=== PATIENT | male | born 1960 | race Caucasian/White ===

== ENCOUNTER 2020-04-09 11:08 | Emergency (ER) | payer OTHER ==
[2020-04-09 11:26] VITALS: BP 129/100
--- NOTE | 2020-04-09 11:30 | EDM.PDOC ---
ED HPI GENERAL MEDICAL PROBLEM - General Chief Complaint: Trauma Stated Complaint: [facility] Time Seen by Provider: 04/09/20 11:08 - History of Present Illness INITIAL COMMENTS - FREE TEXT/NARRATIVE: 60-year-old male presents to the emergency room after possibly being run over by a cow. He was at least hit by the cow and knocked down and may have been hit by the cattle gate as well. This occurred roughly half hour prior to arrival he was brought in by EMS. They were concerned about a deformity in his left forearm. He had a field splint applied he was also given fentanyl which did help with his discomfort. For his age the patient is previously healthy last tetanus shot was July 2015. The patient is not on any routine medications and has no known allergies. The patient has not had any recent surgeries. He did obtain an laceration on his right forehead anterior scalp and has some discomfort in this area. He denies neck pain. He has not had any chest abdomen or pelvic pain and other than his left forearm denies any extremity pain. Left Arm Pain Score (Numeric/FACES): 5 - Related Data Allergies Allergy/AdvReac Type Severity Reaction Status Date / Time No Known Allergies Allergy Verified 07/18/15 17:41 Home Meds: Home Meds . [No Known Home Meds] 07/18/15 [History] Past Medical History - Past Surgical History Other HEENT Surgeries/Procedures: nose surgery Review of Systems - Review of Systems Review Of Systems: See Below Constitutional: Reports: No Symptoms Eyes: Reports: No Symptoms Ears: Reports: No Symptoms Nose: Reports: No Symptoms Mouth/Throat: Reports: No Symptoms Respiratory: Reports: No Symptoms Cardiovascular: Reports: No Symptoms GI/Abdominal: Reports: No Symptoms Genitourinary: Reports: No Symptoms Musculoskeletal: Reports: No Symptoms Neurological: Reports: Headache, Other (I be a little foggy with answering questions this seemed to improve over time) Psychiatric: Reports: No Symptoms ED EXAM, GENERAL - Physical Exam Exam: See Below Exam Limited By: No Limitations General Appearance: Alert, No Apparent Distress, Other (Collar in place field splint applied to left upper extremity) Eye Exam: Bilateral Eye: Normal Inspection, PERRL Ears: Normal External Exam, Normal Canal, Hearing Grossly Normal, Normal TMs Nose: Normal Inspection, Normal Mucosa, No Blood Throat/Mouth: Normal Inspection, Normal Lips, Normal Teeth, Normal Gums, Normal Oropharynx, Normal Voice, No Airway Compromise Head: Other (Some palpatory discomfort especially in the right frontal area he has a laceration roughly 3 cm in this area curvilinear in shape) Neck: Tender Midline (Midline tenderness palpated with the c-collar in place albeit the patient does not complain of neck pain). No: Lymphadenopathy (L), Lymphadenopathy (R) Respiratory/Chest: No Respiratory Distress, Lungs Clear, Normal Breath Sounds Cardiovascular: Regular Rate, Rhythm, No Edema, No Murmur GI/Abdominal: Normal Bowel Sounds, Soft, Non-Tender, No Mass, Pelvis Stable Back Exam: Normal Inspection. No: CVA Tenderness (L), CVA Tenderness (R), Muscle Spasm, Paraspinal Tenderness, Vertebral Tenderness Extremities: Normal Inspection, Normal Range of Motion, Non-Tender, Other (He does have the abnormality in his left forearm this does not appear to be displaced he has an abrasion over the dorsal wrist) Psychiatric: Normal Affect, Normal Mood ED TRAUMA PROCEDURES - Laceration/Wound Repair Right Forehead Appearance: Subcutaneous Distal NVT: Neuro & Vascular Intact Anesthetic Type: Local Local Anesthesia - Lidocaine (Xylocaine): 1% Plain Local Anesthetic Volume: 2cc Skin Prep: Saline Exploration/Debridement/Repair: Wound Explored, In a Bloodless Field, Explored to Base Suture Size: 4-0 # of Sutures: 5 Suture Type: Nylon Tetanus Status Addressed: Yes (Is up-to-date) Complications: No - Splinting Upper Extremity Pre-Procedure NV Status: Normal Post-Procedure NV Status: Normal Splint Material: Fiberglass Splint Design: Volar Applied & Form Fitted By: Provider Provider Post-Splint Application NV Check: NV Status Normal Course - Vital Signs Last Recorded V/S: Last Vital Signs Temp 36.9 C 04/09/20 11:42 Pulse 74 04/09/20 11:42 Resp 16 04/09/20 11:42 BP 129/100 H 04/09/20 11:24 Pulse Ox 97 04/09/20 11:42 - Orders/Labs/Meds Orders: Active Orders 24 hr Category Date Time Status URINALYSIS W/RFLX MICRO/CULT Routine Lab 04/09/20 11:20 Received Durable Medical Equipment for Discharge [DME for Oth 04/09/20 14:31 Ordered Discharge] [COMM] Stat Labs: Laboratory Tests 04/09/20 04/09/20 Range/Units 11:20 11:20 WBC 6.30 (4.23-9.07) K/mm3 RBC 4.42 L (4.63-6.08) M/mm3 Hgb 12.7 L (13.7-17.5) gm/dl Hct 39.8 L (40.1-51.0) % MCV 90.0 (79.0-92.2) fl MCH 28.7 (25.7-32.2) pg MCHC 31.9 L (32.2-35.5) g/dl RDW Std Deviation 44.0 H (35.1-43.9) fL Plt Count 191 (163-337) K/mm3 MPV 11.3 (9.4-12.3) fl Neut % (Auto) 66.6 (34.0-67.9) % Lymph % (Auto) 23.5 (21.8-53.1) % [place] % (Auto) 7.6 (5.3-12.2) % Eos % (Auto) 1.4 (0.8-7.0) Baso % (Auto) 0.6 (0.1-1.2) % Neut # (Auto) 4.19 (1.78-5.38) K/mm3 Lymph # (Auto) 1.48 (1.32-3.57) K/mm3 [place] # (Auto) 0.48 (0.30-0.82) K/mm3 Eos # (Auto) 0.09 (0.04-0.54) K/mm3 Baso # (Auto) 0.04 (0.01-0.08) K/mm3 Sodium 144 (136-145) mEq/L Potassium 3.9 (3.5-5.1) mEq/L Chloride 109 H (98-107) mEq/L Carbon Dioxide 26 (21-32) mEq/L Anion Gap 12.9 (5-15) BUN 26 H (7-18) mg/dL Creatinine 1.5 H (0.7-1.3) mg/dL Est Cr Clr Drug Dosing 48.96 mL/min Estimated GFR (MDRD) 48 (>60) mL/min BUN/Creatinine Ratio 17.3 (14-18) Glucose 106 (74-106) mg/dL Calcium 8.7 (8.5-10.1) mg/dL Total Bilirubin 0.4 (0.2-1.0) mg/dL AST 19 (15-37) U/L ALT 24 (16-63) U/L Alkaline Phosphatase 62 (46-116) U/L Total Protein 6.6 (6.4-8.2) g/dl Albumin 3.6 (3.4-5.0) g/dl Globulin 3.0 gm/dL Albumin/Globulin Ratio 1.2 (1-2) Lipase 80 (73-393) U/L Meds: Medications Discontinued Medications Generic Name Dose Route Start Last Admin Trade Name Diego PRN Reason Stop Dose Admin Fentanyl 50 mcg 04/09/20 13:34 04/09/20 13:40 Sublimaze IVPUSH 04/09/20 13:35 50 mcg ONETIME ONE Administration Lidocaine HCl 10 ml 04/09/20 14:06 Xylocaine 1% INJECT 04/09/20 14:07 ONETIME ONE - Re-Assessments/Exams Free Text/Narrative Re-Assessment/Exam: 04/09/20 13:[address] are unremarkable his exam has not changed he has no other pain other than his left forearm and his head. X-ray of his left forearm shows a slightly angulated slightly displaced fracture of the distal third of the ulna. Case was discussed with who recommends a volar splint and will arrange follow-up with the patient the middle of next week. 04/09/20 14:32 Patient is doing well at this time he has the splint is applied to his left forearm and this helped somewhat we will give him a sling to use as well. Patient is ambulating without too much difficulty his laceration has been repaired on his right frontal area and forehead Departure - Departure Time of Disposition: 14:40 Disposition: Home, Self-Care 01 Clinical Impression: Head injury, Scalp laceration, Left ulnar fracture - Discharge Information Instructions: Sutured Wound Care, [id number], Cast or Splint Care, Adult Referrals: PCP,None [Primary Care Provider] - Dhiraj Cardoza MD [Physician] - Forms: ED Department Discharge Additional Instructions: Return to the emergency room with any questions problems or worsening symptoms. Wear the sling it may help with some your arm discomfort. Tylenol as needed for discomfort. Follow-up with Dr. Cardoza today this next week call tomorrow morning if you do not hear from his office. Sepsis Event Note (ED) - Focused Exam Vital Signs: Vital Signs Temp Pulse Resp BP Pulse Ox 04/09/20 11:42 36.9 C 74 16 97 04/09/20 11:24 36.3 C 71 20 129/100 H 915 H - My Orders Last 24 Hours: My Active Orders 04/09/20 11:20 URINALYSIS W/RFLX MICRO/CULT Routine 04/09/20 14:31 Durable Medical Equipment for Discharge [DME for Discharge] [COMM] Stat - Assessment/Plan Last 24 Hours: My Active Orders 04/09/20 11:20 URINALYSIS W/RFLX MICRO/CULT Routine 04/09/20 14:31 Durable Medical Equipment for Discharge [DME for Discharge] [COMM] Stat
[2020-04-09 11:44] VITALS: PULSE 74
--- NOTE | 2020-04-09 11:52 | CT ---
Head CT Technique: Multiple axial sections through the brain were obtained. Intravenous contrast was not utilized. Comparison: No prior intracranial imaging is available. Findings: Ventricles along with basal cisterns and sulci over the convexities are within normal limits for the patient's age. No abnormal parenchymal densities are seen. No evidence of intracranial hemorrhage. No midline shift or mass-effect is seen. Minimal mucosal thickening noted within the maxillary sinuses which have the appearance of mostly small retention cysts. No acute paranasal sinus disease is seen. Mastoid sinuses are clear. No acute calvarial abnormality is appreciated. Impression: 1. Minimal sinus findings most likely chronic. 2. No acute intracranial abnormality is appreciated. Diagnostic code #2 This report was dictated in MDT
--- NOTE | 2020-04-09 11:52 | CT ---
CT cervical spine Technique: Multiple axial sections were obtained from above C1 anteriorly to the bottom of T2. Reconstructed coronal and sagittal images were obtained. Findings: Mild diffuse disc space narrowing is noted at C3-4 through C7-T1. Anterior osteophytes are seen at C4-5 through C6-7. Posterior osteophytes are noted at C3-4. Moderate right-sided neural foraminal stenosis is noted at C3-4. Other neural foramina are felt to be fairly well patent. Degenerative change is partially visualized within both temporomandibular joints. Slight spurring is noted off the uncovertebral joints at C3-4 and C4-5. No bony central canal stenosis is seen. No fracture is appreciated. Impression: 1. Degenerative change as noted above. 2. Nothing acute is appreciated on CT study of the cervical spine. Diagnostic code #2 This report was dictated in MDT
--- NOTE | 2020-04-09 11:56 | CR ---
Left hand: 4 views left hand were obtained. Comparison: No prior hand study is available. Joint space narrowing is noted within the 3rd MCP joint. Joint space narrowing is noted within the CMC joint of the thumb. Mild degenerative change is noted within the DIP joints of the 2nd and 3rd digits. No acute fracture, dislocation or other bony abnormality is seen. Impression: 1. Mild degenerative change. 2. Nothing acute is appreciated on 4 view left hand study. Diagnostic code #2 This report was dictated in MDT
--- NOTE | 2020-04-09 11:57 | CR ---
Left forearm: 2 views of the left forearm were obtained. Comparison: No previous forearm study. Slightly comminuted and mildly displaced fracture is noted within the distal one third diaphysis of the ulna. Small calcifications are noted anteriorly off the wrist most likely representing dystrophic calcifications. No additional fracture or other bony abnormality is seen. Impression: 1. Ulnar fracture as described above. 2. Presumed small dystrophic calcifications of the anterior wrist. Diagnostic code #3 This report was dictated in MDT
[2020-04-09] MEDS ORDERED: fentaNYL 100 MCG/2 ML SDV IVPUSH ONE (13:34)
[2020-04-09] MEDS ORDERED: Lidocaine 1% 10 ML MDV INJECT ONE (14:06)
== END 2020-04-09 14:57 | disposition home or self-care (01) ==
LOC: JD.ED 11:08
DX: S52.602A Unspecified fracture of lower end of left ulna, initial encounter for closed fracture (principal); S01.01XA Laceration without foreign body of scalp, initial encounter; W55.22XA Struck by cow, initial encounter; Y92.096 Garden or yard of other non-institutional residence as the place of occurrence of the external cause
CPT/HCPCS: 12013; 29125; 36415; 70450; 72125; 73090; 73130; 80053; 83690; 85025; 96374; 99285; J2001; J3010

== ENCOUNTER 2020-09-05 01:34 | Emergency (ER) | payer OTHER ==
[2020-09-05 01:54] VITALS: BP 145/85; PULSE 70
--- NOTE | 2020-09-05 02:14 | EDM.PDOC ---
ED HPI GENERAL MEDICAL PROBLEM - General Chief Complaint: General Stated Complaint: weak cough body aches Time Seen by Provider: 09/05/20 01:43 Source of Information: Reports: Patient History Limitations: Reports: No Limitations - History of Present Illness INITIAL COMMENTS - FREE TEXT/NARRATIVE: This is a 60-year-old male. He comes in tonight because he is having sharp pain in his left upper arm. It has been going on for 2 to 3 days and seems to be getting worse and worse. Now he cannot move his left arm due to the sharp pain. He also states over the last couple of weeks he has been having some fatigue and some myalgias and just been laying around and not doing anything. He says he has an occasional cough but is not productive and maybe has some mild congestion. He has had no fever no chills no shortness of breath no sore throat no nausea vomiting diarrhea no headache. He does indicate he is got a history of Lyme disease 10 years ago that was treated. When the patient comes in he is very demonstrative and his concern for a sharp left arm pain. It does not seem to go into his chest or into his back. Generalized Pain Score (Numeric/FACES): 10 - Related Data Allergies Allergy/AdvReac Type Severity Reaction Status Date / Time No Known Allergies Allergy Verified 09/05/20 01:54 Home Meds: Home Meds traMADol [Ultram] 50 mg PO Q6H PRN #15 tab 09/05/20 [Rx] Past Medical History - Past Health History Medical/Surgical History: Denies Medical/Surgical History - Infectious Disease History Other Infectious Disease History: lymes disease about 5 yrs ago - Past Surgical History Other HEENT Surgeries/Procedures: nose surgery Social & Family History - Tobacco Use Tobacco Use Status *Q: Never Tobacco User - Caffeine Use Caffeine Use: Reports: Coffee, Soda ED ROS GENERAL - Review of Systems Review Of Systems: See Below Constitutional: Reports: Fatigue. Denies: Fever, Chills HEENT: Reports: No Symptoms Respiratory: Reports: Cough. Denies: Shortness of Breath, Wheezing Cardiovascular: Reports: No Symptoms Endocrine: Reports: No Symptoms GI/Abdominal: Denies: Abdominal Pain, Diarrhea, Nausea, Vomiting : Reports: No Symptoms Musculoskeletal: Reports: Shoulder Pain Skin: Reports: No Symptoms Neurological: Reports: No Symptoms Psychiatric: Reports: Anxiety Hematologic/Lymphatic: Reports: No Symptoms ED EXAM, GENERAL - Physical Exam Exam: See Below Exam Limited By: No Limitations General Appearance: Alert, WD/WN, Anxious, Mild Distress Eye Exam: Bilateral Eye: Normal Inspection Ears: Normal External Exam, Normal Canal, Normal TMs Nose: Normal Inspection Throat/Mouth: Normal Inspection, Normal Lips, Normal Oropharynx, Normal Voice, No Airway Compromise Head: Normocephalic Neck: Supple, Other (He has no cervical spine tenderness or paraspinal muscle tenderness noted and he moves his head freely without pain.) Respiratory/Chest: No Respiratory Distress, Lungs Clear, Normal Breath Sounds, Other (Anterior chest is nontender on palpation. He has no rib tenderness noted. Palpation of the trapezius muscles are nontender.) Cardiovascular: Regular Rate, Rhythm, No Murmur GI/Abdominal: Soft, Non-Tender Back Exam: Normal Inspection, Full Range of Motion Extremities: Other (His right arm and both of his legs he has no complaints. With his left shoulder any sort of movement of that left shoulder causes sharp pain that runs down his upper arm. When asked to move that right shoulder he can only move it anteriorly about 30 degrees or laterally about 30 degrees without marked increased pain and he begins to get some tears. Patient reveals tenderness in the bicep tendon and the acromial shelf suggesting supraspinatus tendon irritation as well as bicep tendon irritation. Neurovascular is intact in all 5 digits distally in that left upper extremity.) Neurological: Alert, Oriented Psychiatric: Anxious, Tearful Skin Exam: Warm, Dry #1 Interpretation EKG Date: 09/05/20 Time: 20:00 EKG Interpretation Comments: EKG shows a normal sinus rhythm rate of [address] there is no acute ST or T wave changes there is no ischemia. Course - Vital Signs Last Recorded V/S: Last Vital Signs Temp 98.2 F 09/05/20 01:51 Pulse 70 09/05/20 01:51 Resp 18 09/05/20 01:51 BP 145/85 H 09/05/20 01:51 Pulse Ox 99 09/05/20 01:51 - Orders/Labs/Meds Orders: Active Orders 24 hr Category Date Time Status EKG 12 Lead [EKG Documentation Completion] [RC] STAT Care 09/05/20 02:08 Active CXR [Chest 1V Frontal] [CR] Stat Exams 09/05/20 02:07 Taken Shoulder Comp Lt [CR] Stat Exams 09/05/20 02:09 Taken Lactated Ringers [Ringers, Lactated] 1,000 ml Med 09/05/20 05:21 Active IV .BOLUS Sodium Chloride 0.9% [Normal Saline] 1,000 ml Med 09/05/20 02:15 Active IV ASDIRECTED DME for Discharge [COMM] Stat Oth 09/05/20 05:32 Ordered Isolation [COMM] Routine Oth 09/05/20 02:08 Ordered Medication Orders Sodium Chloride (Normal Saline) 1,000 mls @ 1,000 mls/hr IV ASDIRECTED BRITTON Last Admin: 09/05/20 02:22 Dose: 1,000 mls/hr Documented by: BIBIANA Lactated Ringer's (Ringers, Lactated) 1,000 mls @ 999 mls/hr IV .BOLUS ONE Stop: 09/05/20 06:21 Last Admin: 09/05/20 05:22 Dose: 999 mls/hr Documented by: BIBIANA Labs: Laboratory Tests 09/05/20 09/05/20 09/05/20 Range/Units 02:13 02:13 02:13 WBC 6.92 (4.23-9.07) K/mm3 RBC 5.14 (4.63-6.08) M/mm3 Hgb 14.9 D (13.7-17.5) gm/dl Hct 44.4 (40.1-51.0) % MCV 86.4 D (79.0-92.2) fl MCH 29.0 (25.7-32.2) pg MCHC 33.6 (32.2-35.5) g/dl RDW Std Deviation 42.1 (35.1-43.9) fL Plt Count 174 (163-337) K/mm3 MPV 11.4 (9.4-12.3) fl Neut % (Auto) 70.3 H (34.0-67.9) % Lymph % (Auto) 16.2 L (21.8-53.1) % Isabela % (Auto) 12.7 H (5.3-12.2) % Eos % (Auto) 0.4 L (0.8-7.0) Baso % (Auto) 0.3 (0.1-1.2) % Neut # (Auto) 4.86 (1.78-5.38) K/mm3 Lymph # (Auto) 1.12 L (1.32-3.57) K/mm3 Isabela # (Auto) 0.88 H (0.30-0.82) K/mm3 Eos # (Auto) 0.03 L (0.04-0.54) K/mm3 Baso # (Auto) 0.02 (0.01-0.08) K/mm3 Sodium 138 (136-145) mEq/L Potassium 4.4 (3.5-5.1) mEq/L Chloride 104 (98-107) mEq/L Carbon Dioxide 26 (21-32) mEq/L Anion Gap 12.4 (5-15) BUN 22 H (7-18) mg/dL Creatinine 1.6 H (0.7-1.3) mg/dL Est Cr Clr Drug Dosing TNP Estimated GFR (MDRD) 44 (>60) mL/min BUN/Creatinine Ratio 13.8 L (14-18) Glucose 107 H (74-106) mg/dL Calcium 8.7 (8.5-10.1) mg/dL Ferritin 625 H (26-388) ng/ml Total Bilirubin 0.6 (0.2-1.0) mg/dL AST 21 (15-37) U/L ALT 41 (16-63) U/L Alkaline Phosphatase 83 (46-116) U/L Lactate Dehydrogenase 185 (85-227) U/L Troponin I < 0.017 (0.00-0.056) ng/mL C-Reactive Protein 1.0 (<1.0) mg/dL Total Protein 7.1 (6.4-8.2) g/dl Albumin 3.4 (3.4-5.0) g/dl Globulin 3.7 gm/dL Albumin/Globulin Ratio 0.9 L (1-2) Meds: Medications Generic Name Dose Route Start Last Admin Trade Name Freq PRN Reason Stop Dose Admin Sodium Chloride 1,000 mls @ 1,000 mls/hr 09/05/20 02:15 09/05/20 02:22 Normal Saline IV 1,000 mls/hr ASDIRECTED BRITTON Administration Lactated Ringer's 1,000 mls @ 999 mls/hr 09/05/20 05:21 09/05/20 05:22 Ringers, Lactated IV 09/05/20 06:21 999 mls/hr .BOLUS ONE Administration Discontinued Medications Generic Name Dose Route Start Last Admin Trade Name Diego PEREA Reason Stop Dose Admin Hydromorphone HCl 0.5 mg 09/05/20 02:17 09/05/20 02:22 Dilaudid IVPUSH 09/05/20 02:18 0.5 mg ONETIME ONE Administration Ketorolac Tromethamine 30 mg 09/05/20 02:17 09/05/20 02:22 Toradol IVPUSH 09/05/20 02:18 30 mg ONETIME ONE Administration - Radiology Interpretation Free Text/Narrative:: Chest x-ray does not show any acute infiltrates or groundglass appearance. Left shoulder show some degenerative changes but no acute fractures. - Re-Assessments/Exams Free Text/Narrative Re-Assessment/Exam: 09/05/20 04:18 Spoke to the patient regarding his lab results that all the parameters and the blood for Covid are negative and his chest x-ray is negative so I do not believe he has a Covid virus causing his fatigue. It could be may be a residual from his Lyme disease though I believe it is been adequately treated according to the patient. I did speak to the and encouraged her to follow-up with Dr. Reina because I believe the patient needs an MRI of his left shoulder since that seems to be where all the pain is coming from. I do not have an answer as to his overwhelming fatigue that he seems to be having though he does have some renal insufficiency and even with a liter of fluids he seemed to be feeling better. 09/05/20 05:32 After 2 L of fluids the patient is actually feeling better. We will get a put him in a left arm sling to protect that shoulder Nuno Monday morning for an appointment to be seen and evaluated for the left shoulder pain and the fatigue. Departure - Departure Time of Disposition: 05:33 Disposition: Home, Self-Care 01 Condition: Fair Clinical Impression: Strain of muscle(s) and tendon(s) of the rotator cuff of left shoulder, initial encounter, Dehydration, Renal insufficiency Fatigue Qualifiers: Fatigue type: unspecified Qualified Code(s): R53.83 - Other fatigue - Discharge Information *PRESCRIPTION DRUG MONITORING PROGRAM REVIEWED*: Not Applicable *COPY OF PRESCRIPTION DRUG MONITORING REPORT IN PATIENT DARIUS: Not Applicable Prescriptions: traMADol [Ultram] 50 mg PO Q6H PRN #15 tab PRN Reason: Pain Instructions: Dehydration, Adult, [id number] Referrals: Sohan Marcial MD [Primary Care Provider] - Forms: ED Department Discharge Additional Instructions: You were seen in the ER for fatigue and left shoulder pain. It was determined that you are somewhat dehydrated and you have some renal insufficiency due to that dehydration, your left shoulder pain appears to be related to either the rotator cuff for the bicep tendon and you need an MRI of that left shoulder, continue to hydrate yourself, take the pain medications as needed and use ice to that shoulder to help with the pain, call Dr. Reina Monday morning for an appointment to be seen for the fatigue as well as the dehydration and the left shoulder pain, return to the ER if needed Sepsis Event Note (ED) - Evaluation Sepsis Screening Result: No Definite Risk - Focused Exam Vital Signs: Vital Signs Temp Pulse Resp BP Pulse Ox 09/05/20 01:51 98.2 F 70 18 145/85 H 99 - My Orders Last 24 Hours: My Active Orders 09/05/20 02:07 CXR [Chest 1V Frontal] [CR] Stat 09/05/20 02:08 EKG 12 Lead [EKG Documentation Completion] [RC] STAT Isolation [COMM] Routine 09/05/20 02:09 Shoulder Comp Lt [CR] Stat 09/05/20 02:15 Sodium Chloride 0.9% [Normal Saline] 1,000 ml IV ASDIRECTED 09/05/20 05:21 Lactated Ringers [Ringers, Lactated] 1,000 ml IV .BOLUS 09/05/20 05:32 DME for Discharge [COMM] Stat - Assessment/Plan Last 24 Hours: My Active Orders 09/05/20 02:07 CXR [Chest 1V Frontal] [CR] Stat 09/05/20 02:08 EKG 12 Lead [EKG Documentation Completion] [RC] STAT Isolation [COMM] Routine 09/05/20 02:09 Shoulder Comp Lt [CR] Stat 09/05/20 02:15 Sodium Chloride 0.9% [Normal Saline] 1,000 ml IV ASDIRECTED 09/05/20 05:21 Lactated Ringers [Ringers, Lactated] 1,000 ml IV .BOLUS 09/05/20 05:32 DME for Discharge [COMM] Stat
[2020-09-05] MEDS ORDERED: Sodium Chloride 0.9% 1,000 ML IV SCH (02:15)
[2020-09-05] MEDS ORDERED: HYDROmorphone 0.5 MG/0.5 ML Syringe IVPUSH ONE (02:17)
[2020-09-05] MEDS ORDERED: Ketorolac 30 MG/ML SDV IVPUSH ONE (02:17)
[2020-09-05] MEDS ORDERED: Lactated Ringers 1,000 ML IV ONE (05:21)
--- NOTE | 2020-09-07 09:11 | CR ---
PROCEDURE INFORMATION: Exam: XR Chest, 1 View Exam date and time: 09/05/2020 3:35 AM Age: 60 years old Clinical indication: Shortness of breath and other: Severe fatigue; Patient HX: Cough, fatigue onset 5 days ago TECHNIQUE: Imaging protocol: XR of the chest Views: 1 view. COMPARISON: DX Chest 2V 08/22/2017 4:18 PM FINDINGS: Lungs: Unremarkable. No consolidation. Pleural space: Unremarkable. No pleural effusion. No pneumothorax. Heart/Mediastinum: Unremarkable. No cardiomegaly. Bones/joints: Unremarkable. IMPRESSION: No acute findings. Thank you for allowing us to participate in the care of your patient. Dictated and Authenticated by: Nathan Mane MD 09/05/2020 5:20 AM Central Time ([place] & [place]) DAVID
--- NOTE | 2020-09-07 09:12 | CR ---
PROCEDURE INFORMATION: Exam: XR Left Shoulder Exam date and time: 09/05/2020 3:48 AM Age: 60 years old Clinical indication: Shoulder; Patient HX: Left arm pain onset 4 days ago TECHNIQUE: Imaging protocol: XR Left shoulder. Views: 2 or more views. COMPARISON: No relevant prior studies available. FINDINGS: Bones/joints: Osteoarthritis involving the AC joint and glenohumeral joint. Soft tissues: Normal. IMPRESSION: 1. 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 2. No evidence for fracture or calcific tendinitis Thank you for allowing us to participate in the care of your patient. Dictated and Authenticated by: Nathan Mane MD 09/05/2020 5:28 AM Central Time ([place] & [place]) [facility]
== END 2020-09-05 05:53 | disposition home or self-care (01) ==
LOC: JD.ED 01:34
DX: S46.012A Strain of muscle(s) and tendon(s) of the rotator cuff of left shoulder, initial encounter (principal); E86.0 Dehydration; N28.9 Disorder of kidney and ureter, unspecified; R53.83 Other fatigue; X58.XXXA Exposure to other specified factors, initial encounter
CPT/HCPCS: 36415; 71045; 73030; 80053; 82728; 83615; 84484; 85025; 86140; 87804; 93005; 96374; 96375; 99284; J1170; J1885; J7030; J7120; 93010

== ENCOUNTER → 2022-10-03 | Day surgery (SDC) | payer OTHER ==
[~2022-10-03] MED LIST: Acetaminophen 325 MG Tab PO SCH; Acetaminophen/HYDROcodone 325-5 MG Tab PO ONE; Acetaminophen/HYDROcodone 325-5 MG Tab PO SCH; Dexamethasone 4 MG/ML 5 ML MDV ONE; Dexmedetomidine 200 MCG/2 ML SDV ONE; EPINEPHrine 1 MG/ML SDV ONE; HYDROmorphone 0.5 MG/0.5 ML Syringe IVPUSH PRN; Lactated Ringers 1,000 ML IV SCH; Lidocaine 1% 6 ML ONE; Lidocaine 1% PF 2 ML SDV ONE; Lidocaine 1%/Sod Bicarbonate in NS 8.4% 1 ML Syringe IDERM PRN; Midazolam 1 MG/ML 2 ML SDV ONE; Ondansetron 4 MG/2 ML SDV ONE; Pregabalin 25 MG Cap PO SCH; Propofol 200 MG/20 ML SDV ONE; Ropivacaine 0.5% 5 MG/ML 30 ML SDV ONE; Sodium Chloride 0.9% 10 ML Syringe FLUSH PRN; Sodium Chloride 0.9% 10 ML Syringe FLUSH SCH; Tranexamic Acid 1,000 MG/10 ML Vial ONE; Vancomycin 1 GM SDV ONE; ceFAZolin 1 GM Vial ONE; ceFAZolin 2 GM Vial ONE; fentaNYL 100 MCG/2 ML SDV IVPUSH PRN; fentaNYL 100 MCG/2 ML SDV ONE; oxyCODONE ER 10 MG TAB.ER PO SCH
[2022-10-03] MEDS: Prochlorperazine 10 MG/2 ML SDV IVPUSH PRN ×2 (15:48→16:13)
[2022-10-03 17:38] VITALS: BP 115/73; PULSE 76
== END | disposition home or self-care (01) ==
LOC: JD.SDS 06:52
PROVIDERS: ATTEND Orthopaedic Surgery
PROC: 0RQK0ZZ Repair Left Shoulder Joint, Open Approach (ICD-10-PCS; principal; 2022-10-03)
PROC: 0LS40ZZ Reposition Left Upper Arm Tendon, Open Approach (ICD-10-PCS; 2022-10-03)
DX: M75.102 Unspecified rotator cuff tear or rupture of left shoulder, not specified as traumatic (principal); M19.012 Primary osteoarthritis, left shoulder
CPT/HCPCS: 01638; 64415; 73020-26-LT; 73020-LT; 76000; 76000-26; 76942; A9270-GY; C1713; C1769; C1776; J0171; J0690; J0780; J1100; J2250; J2405; J2704; J2795; J3010; J3370; J7120

== ENCOUNTER 2023-03-15 16:47 | Emergency (ER) | payer OTHER ==
[2023-03-15] MEDS ORDERED: Lidocaine 1% 10 ML MDV INJECT ONE (18:58)
[2023-03-15 20:11] VITALS: BP 120/75; PULSE 86
== END 2023-03-15 20:11 | disposition home or self-care (01) ==
LOC: JD.ED 16:47
DX: S67.22XA Crushing injury of left hand, initial encounter (principal); S61.211A Laceration without foreign body of left index finger without damage to nail, initial encounter; S61.213A Laceration without foreign body of left middle finger without damage to nail, initial encounter; J45.909 Unspecified asthma, uncomplicated; W23.1XXA Caught, crushed, jammed, or pinched between stationary objects, initial encounter; Y99.0 Civilian activity done for income or pay
CPT/HCPCS: 12001; 73130-26-LT; 73130-LT; 99283; J3490

== ENCOUNTER 2023-09-26 07:53 | Day surgery (SDC) | payer OTHER ==
[~2023-09-26 07:53] MED LIST changes: -Acetaminophen 325 MG Tab PO SCH; -Acetaminophen/HYDROcodone 325-5 MG Tab PO ONE; -Acetaminophen/HYDROcodone 325-5 MG Tab PO SCH; -Dexamethasone 4 MG/ML 5 ML MDV ONE; -Dexmedetomidine 200 MCG/2 ML SDV ONE; -EPINEPHrine 1 MG/ML SDV ONE; -HYDROmorphone 0.5 MG/0.5 ML Syringe IVPUSH PRN; -Lidocaine 1% 6 ML ONE; -Lidocaine 1% PF 2 ML SDV ONE; -Lidocaine 1%/Sod Bicarbonate in NS 8.4% 1 ML Syringe IDERM PRN; -Midazolam 1 MG/ML 2 ML SDV ONE; -Ondansetron 4 MG/2 ML SDV ONE; -Pregabalin 25 MG Cap PO SCH; -Propofol 200 MG/20 ML SDV ONE; -Ropivacaine 0.5% 5 MG/ML 30 ML SDV ONE; -Tranexamic Acid 1,000 MG/10 ML Vial ONE; -Vancomycin 1 GM SDV ONE; -ceFAZolin 1 GM Vial ONE; -ceFAZolin 2 GM Vial ONE; -fentaNYL 100 MCG/2 ML SDV IVPUSH PRN; -fentaNYL 100 MCG/2 ML SDV ONE; -oxyCODONE ER 10 MG TAB.ER PO SCH
[2023-09-26] MEDS ORDERED: Propofol 200 MG/20 ML SDV ONE (08:27)
[2023-09-26] MEDS ORDERED: Lidocaine 1% 2 ML ONE (08:28)
[2023-09-26] MEDS ORDERED: Ondansetron 4 MG/2 ML SDV IVPUSH ONE (09:10)
[2023-09-26 10:16] VITALS: BP 128/74; PULSE 65
== END 2023-09-26 09:40 | disposition home or self-care (01) ==
LOC: JD.SDS 07:53
PROVIDERS: ATTEND Surgery
DX: Z12.11 Encounter for screening for malignant neoplasm of colon (principal); K62.1 Rectal polyp; K57.30 Diverticulosis of large intestine without perforation or abscess without bleeding; J45.20 Mild intermittent asthma, uncomplicated; N18.9 Chronic kidney disease, unspecified; Z79.899 Other long term (current) drug therapy
CPT/HCPCS: 45380; J2704; J7120; J3490

== ENCOUNTER 2024-03-08 07:02 | Emergency (ER) | payer OTHER ==
[2024-03-08] MEDS: Ketorolac 60 MG/2 ML SDV IM ONE (07:50)
[2024-03-08] MEDS: Acetaminophen/oxyCODONE 325-5 MG Tab PO ONE (07:51)
[2024-03-08 09:09] VITALS: BP 130/89; PULSE 77
== END 2024-03-08 09:08 | disposition home or self-care (01) ==
LOC: JD.ED 07:02
DX: S63.501A Unspecified sprain of right wrist, initial encounter (principal); J45.909 Unspecified asthma, uncomplicated; Z86.16 Personal history of COVID-19; Z88.8 Allergy status to other drugs, medicaments and biological substances; Y92.89 Other specified places as the place of occurrence of the external cause; Y99.0 Civilian activity done for income or pay
CPT/HCPCS: 73090-26-RT; 73090-RT; 73110-26-RT; 73110-RT; 96372; 99283; A9270-GY; J1885

== ENCOUNTER 2025-04-28 07:00 | Day surgery (SDC) | payer OTHER ==
[~2025-04-28 07:00] MED LIST changes: -Lactated Ringers 1,000 ML IV SCH; +Midazolam 1 MG/ML 2 ML SDV ONE; +Morphine 8 MG, EPINEPHrine 0.3 MG, Cefuroxime 750 MG, Ketorolac 30 MG, Sodium Chloride ... PRN; +Ondansetron 4 MG/2 ML SDV IVPUSH PRN; +Ropivacaine 0.5% 5 MG/ML 30 ML SDV ONE; -Sodium Chloride 0.9% 10 ML Syringe FLUSH SCH; +fentaNYL 100 MCG/2 ML SDV IVPUSH PRN; +fentaNYL 100 MCG/2 ML SDV ONE; +propofoL 500 MG/50 ML 50 ML ONE
[2025-04-28] MEDS: Lactated Ringers 1,000 ML IV SCH (07:05)
[2025-04-28] MEDS ORDERED: ePHEDrine 50 MG/ML SDV ONE (08:16)
[2025-04-28] MEDS ORDERED: Lactated Ringers 1,000 ML ONE (08:31)
[2025-04-28] MEDS ORDERED: Sodium Chloride 0.9% 10 ML Syringe FLUSH SCH (09:00)
[2025-04-28] MEDS ORDERED: Propofol 200 MG/20 ML SDV ONE (09:04)
[2025-04-28] MEDS: Morphine 8 MG, EPINEPHrine 0.3 MG, Cefuroxime 750 MG, Ketorolac 30 MG, Sodium Chloride ... PRN (09:14)
[2025-04-28] MEDS: Acetaminophen/HYDROcodone 325-5 MG Tab PO SCH (11:32)
[2025-04-28 15:43] VITALS: BP 117/78; PULSE 65
== END 2025-04-28 15:39 | disposition home or self-care (01) ==
LOC: JD.SDS 07:00
PROVIDERS: ATTEND Orthopaedic Surgery
DX: M17.12 Unilateral primary osteoarthritis, left knee (principal); N18.9 Chronic kidney disease, unspecified; Z88.8 Allergy status to other drugs, medicaments and biological substances
CPT/HCPCS: 0055T; 27447; 64447; 73560; 97116; 97161; 97530; A9270; C1713; C1776; J0171; J0690; J0697; J1885; J2250; J2272; J2704; J2795; J3010; J3370; J7120; 01402; J3490